=== PATIENT | male | born 1960 | race Caucasian/White ===

== ENCOUNTER 2023-04-06 10:34 | Emergency (ER) | payer MEDICAID ==
[~2023-04-06] VITALS: Ht 157.5 cm; Wt 72.6 kg
[2023-04-06 10:56] VITALS: BP 94/72; PULSE 90; RESP 18; TEMP 98; O2SAT 98
[2023-04-06] MEDS ORDERED: ACETAMINOPHEN EXTRA STRENGTH 500 MG TAB PO ONE (11:50)
[2023-04-06] MEDS ORDERED: IBUPROFEN 600 MG TAB PO ONE (11:50)
[2023-04-06] MEDS ORDERED: ACET-2619 PO ×2 (11:58→12:03)
[2023-04-06] MEDS ORDERED: PROM118S5 PO ×2 (11:58→12:03)
[2023-04-06] MEDS ORDERED: IBUP-2213 PO ×2 (11:58→12:03)
[2023-04-06 12:23] LABS: FLU A ANTIGEN negative (NEGATIVE); FLU B ANTIGEN negative (NEGATIVE)
== END 2023-04-06 12:29 | disposition home or self-care (01) ==
LOC: MED 10:34
DX: J06.9 Acute upper respiratory infection, unspecified (principal); Z20.822 Contact with and (suspected) exposure to COVID-19; Z79.899 Other long term (current) drug therapy
CPT/HCPCS: 99283